=== PATIENT | male | born 1965 | race Caucasian/White ===

== ENCOUNTER 2021-01-07 08:54 | Outpatient (CLI) | payer OTHER, SELFPAY ==
--- NOTE | ~2021-01-07 | US_ITS ---
EXAMINATION: US abdomen limited EXAM DATE: 01/07/2021 09:19 INDICATION: Umbilical hernia. TECHNIQUE: Multiple grayscale and Doppler images of the symptomatic abdominal region were obtained (sonia moser a technologist who performed the scan) and subsequently reviewed. There is no prior study for sang madden. FINDINGS: Scanning at the umbilicus demonstrates a fat-containing hernia, region measuring 2 centimeters diamet er, with wall defect, mouth of the hernia about 1.4 cm in diameter. This demonstrated some motion wit h Valsalva. IMPRESSION: Small umbilical fat-containing hernia. Reviewed, dictated and finalized at location B.
== END 2021-01-07 08:55 | disposition home or self-care (01) ==
LOC: ANHIMG 09:03
PROVIDERS: PCP Physician Assistant; Visit Provider Physician Assistant
DX: K42.9 Umbilical hernia without obstruction or gangrene (principal)
CPT/HCPCS: 76705